=== PATIENT | male | born 1985 | race African-American/Black ===

== ENCOUNTER 2018-08-15 03:02 | Emergency (ER) | payer OTHER ==
[2018-08-15] MEDS ORDERED: LIDOCAINE 1%/EPINEPHRINE INJ 20 ML VIAL ONE (03:10)
[2018-08-15] MEDS ORDERED: CEFAZOLIN INJ 1 GM VIAL ONE (03:14)
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
== END 2018-08-15 05:47 | disposition home or self-care (01) ==
LOC: ER 03:02
PROC: 0HQ1XZZ Repair Face Skin, External Approach (ICD-10-PCS; principal; 2018-08-15)
PROC: 0HQJXZZ Repair Left Upper Leg Skin, External Approach (ICD-10-PCS; 2018-08-15)
PROC: 0HQ8XZZ Repair Buttock Skin, External Approach (ICD-10-PCS; 2018-08-15)
PROC: 0HQ5XZZ Repair Chest Skin, External Approach (ICD-10-PCS; 2018-08-15)
PROC: 0HQBXZZ Repair Right Upper Arm Skin, External Approach (ICD-10-PCS; 2018-08-15)
DX: S21.102A Unspecified open wound of left front wall of thorax without penetration into thoracic cavity, initial encounter (principal); S21.101A Unspecified open wound of right front wall of thorax without penetration into thoracic cavity, initial encounter; S71.002A Unspecified open wound, left hip, initial encounter; S31.829A Unspecified open wound of left buttock, initial encounter; S01.501A Unspecified open wound of lip, initial encounter; S01.80XA Unspecified open wound of other part of head, initial encounter; S01.102A Unspecified open wound of left eyelid and periocular area, initial encounter; S41.101A Unspecified open wound of right upper arm, initial encounter; X99.9XXA Assault by unspecified sharp object, initial encounter; I10 Essential (primary) hypertension
CPT/HCPCS: 99285; 71045; 74177; 13132; 13101; 13121 ×2; 13151; J0690; J3490

== ENCOUNTER 2019-10-31 13:50 | Emergency (ER) | payer OTHER ==
--- NOTE | 2019-10-31 16:30 | RADIOLOGY REPORT (SQ) ---
EXAM DESCRIPTION: CHEST SINGLE VIEW IMAGES COMPLETED DATE/TIME: 10/31/2019 4:14 pm REASON FOR STUDY: SOB COMPARISON: 08/15/2018 EXAM PARAMETERS: NUMBER OF VIEWS: One view. TECHNIQUE: Single frontal radiographic view of the chest acquired. RADIATION DOSE: NA LIMITATIONS: None. FINDINGS: LUNGS AND PLEURA: No opacities, masses or pneumothorax. No pleural effusion. MEDIASTINUM AND HILAR STRUCTURES: No masses. Contour normal. HEART AND VASCULAR STRUCTURES: Heart normal in size. Normal vasculature. BONES: No acute findings. HARDWARE: None in the chest. OTHER: No other significant finding. IMPRESSION: NO ACUTE RADIOGRAPHIC FINDING IN THE CHEST. TECHNICAL DOCUMENTATION: JOB ID: [id number] 2010 [employer]- All Rights Reserved Reading location - IP/workstation name: [email or web address]
[2019-10-31] MEDS ORDERED: ALBUTEROL SULFATE 0.083% NEB 2.5 MG/3 ML AMPUL NEB ONE (19:15)
[2019-10-31] MEDS ORDERED: PREDNISONE 20 MG TABLET PO ONE (19:15)
--- NOTE | 2019-10-31 20:34 | ER Document Report ---
ED General - General Chief Complaint: Shortness Of Breath Stated Complaint: SHORTNESS OF BREATH Time Seen by Provider: 10/31/19 18:02 Mode of Arrival: Ambulatory Information source: Patient TRAVEL OUTSIDE OF THE [place] IN LAST 30 DAYS: No - HPI Notes: Patient presents complaint of shortness of breath. He states it started about 3 AM today. He states that he woke up having trouble breathing. He states he does have inhalers at home but has not gotten relief by using them. He does have a history of asthma. He denies any steroids. He states that he quit smoking 1 week ago. No cough cold or congestion. No known covert virus exposures. No fever sweats or chills. Shortness of breath is constant. It is worse with exertion and better with rest. Obvious there is no radiation of the symptoms. It was moderate in intensity. - Related Data Allergies/Adverse Reactions: No Known Allergies Allergy (Verified 08/15/18 06:31) Past Medical History - General Information source: Patient - Social History Smoking Status: Current Every Day Smoker Frequency of alcohol use: None Drug Abuse: None Family History: Reviewed & Not Pertinent Patient has homicidal ideation: No - Past Medical History Cardiac Medical History: Reports: Hx Hypertension - waiting for pa to prescribe meds Denies: Hx Heart Attack Pulmonary Medical History: Denies: Hx Asthma, Hx Bronchitis, Hx COPD, Hx Pneumonia Neurological Medical History: Denies: Hx Seizures Musculoskeletal Medical History: Denies Hx Arthritis, Reports Hx Musculoskeletal Deformity, Reports Hx Musculoskeletal Trauma Past Surgical History: Reports: Hx Orthopedic Surgery - left ankle - Immunizations Immunizations up to date: Yes Hx Diphtheria, Pertussis, Tetanus Vaccination: Yes - 02/17/2016 Review of Systems - Review of Systems Constitutional: denies: Chills, Fever Cardiovascular: denies: Chest pain, Palpitations Respiratory: Cough, Short of breath -: Yes All other systems reviewed and negative Physical Exam - Vital signs Vitals: Temp Pulse Resp BP Pulse Ox 98.6 F 64 14 153/91 H 99 10/31/19 14:50 10/31/19 14:50 10/31/19 14:50 10/31/19 14:50 10/31/19 14:50 Interpretation: Hypertensive - General General appearance: Appears well, Alert - HEENT Head: Normocephalic, Atraumatic Eyes: Normal Pupils: PERRL - Respiratory Respiratory status: No respiratory distress Chest status: Nontender Breath sounds: Wheezing Chest palpation: Normal - Cardiovascular Rhythm: Regular Heart sounds: Normal auscultation Murmur: No - Abdominal Inspection: Normal Distension: No distension Bowel sounds: Normal Tenderness: Nontender Organomegaly: No organomegaly - Back Back: Normal, Nontender - Extremities General upper extremity: Normal inspection, Nontender, Normal color, Normal ROM, Normal temperature General lower extremity: Normal inspection, Nontender, Normal color, Normal ROM, Normal temperature, Normal weight bearing. No: Jevon's sign - Neurological Neuro grossly intact: Yes Cognition: Normal Orientation: AAOx4 [place] Coma Scale Eye Opening: Spontaneous [place] Coma Scale Verbal: Oriented [place] Coma Scale Motor: Obeys Commands [place] Coma Scale Total: 15 Speech: Normal Motor strength normal: LUE, RUE, LLE, RLE Sensory: Normal - Psychological Associated symptoms: Normal affect, Normal mood - Skin Skin Temperature: Warm Skin Moisture: Dry Skin Color: Normal Course - Re-evaluation Re-evalutation: 10/31/19 20:32 Patient treated here with steroids and nebulizers. Afterward she had significant relief of symptoms. He states subjectively that he feels "much better". His respirations are unlabored and he is sitting in the room watching TV. His wheezing is completely abated. His lungs are now clear. - Vital Signs Vital signs: Temp Pulse Resp BP Pulse Ox 98.6 F 64 14 153/91 H 99 10/31/19 15:54 10/31/19 14:50 10/31/19 14:50 10/31/19 14:50 10/31/19 14:50 - Diagnostic Test Radiology reviewed: Image reviewed, Reports reviewed Discharge - Discharge Clinical Impression: Acute asthma exacerbation Qualifiers: Asthma severity: moderate Asthma persistence: persistent Qualified Code(s): J45.41 - Moderate persistent asthma with (acute) exacerbation Condition: Stable Disposition: HOME, SELF-CARE Instructions: Asthma ([facility]) Additional Instructions: Please call your primary care doctor soon as possible to arrange follow-up Prescriptions: Prednisone [Deltasone 20 mg Tablet] 3 tab PO DAILY 5 Days tablet Referrals: [facility] [Provider Group] - Follow up in 3-5 days
[2019-10-31 20:39] VITALS: BP 151/98
== END 2019-10-31 20:49 | disposition home or self-care (01) ==
LOC: ER 13:50
DX: R06.02 Shortness of breath (principal); F17.200 Nicotine dependence, unspecified, uncomplicated; J45.41 Moderate persistent asthma with (acute) exacerbation; I10 Essential (primary) hypertension
CPT/HCPCS: 94640; 99284; 71045; J7512

== ENCOUNTER 2019-11-16 01:43 | Emergency (ER) | payer OTHER ==
[2019-11-16] MEDS ORDERED: IPRATROPIUM/ALBUTEROL 0.5-2.5 MG/3 ML AMPUL NEB ONE ×2 (01:50→01:54)
[2019-11-16] MEDS ORDERED: METHYLPREDNISOLONE INJ 125 MG/2 ML SDV IV ONE (01:54)
[2019-11-16] MEDS ORDERED: MAGNESIUM SULFATE/D5W 1 GM/100 ML RTUPB IV SCH (02:00)
--- NOTE | 2019-11-16 02:30 | RADIOLOGY REPORT (SQ) ---
EXAM DESCRIPTION: XR CHEST 1 VIEW COMPLETED DATE/TME: 11/16/2019 01:53 CLINICAL HISTORY: 34 years, Male, SOB COMPARISON: X-ray chest 10/31/2019 NUMBER OF VIEWS: TECHNIQUE: LIMITATIONS: None. FINDINGS: No evidence of pulmonary infiltrate or pleural effusion. The heart and mediastinum are unremarkable. Pulmonary vascularity appears normal. There is no significant change, as compared with the prior x-ray(s). IMPRESSION: No acute finding. copyright 2010 [employer]- All Rights Reserved
[2019-11-16 02:34] LABS: ABSOLUTE EOSINOPHILS # (AUTO) 0.4 10^3/uL (0.0-0.6); ABSOLUTE LYMPHOCYTES (AUTO) 2.9 10^3/uL (0.5-4.7); ABSOLUTE MONOCYTES (AUTO) 0.8 10^3/uL (0.1-1.4); ABSOLUTE NEUT (AUTO) 2.6 10^3/uL (1.7-8.2); BASOPHILS % (AUTO) 0.5 % (0-2); EOSINOPHILS % (AUTO) 5.6 % (0-6); HEMATOCRIT 43.8 % (37.9-51.0); HEMOGLOBIN 15.1 g/dL (13.5-17.0); LYMPHOCYTES % (AUTO) 43.1 % (13-45); MEAN CORPUSCULAR HEMOGLOBIN 31.7 pg (27.0-33.4); MEAN CORPUSCULAR HGB CONC 34.5 g/dL (32.0-36.0); MEAN CORPUSCULAR VOLUME 92 fl (80-97); MONOCYTES % (AUTO) 12.3 % (3-13); PLATELET COUNT 236 10^3/uL (150-450); RED BLOOD COUNT 4.77 10^6/uL (4.35-5.55); RED CELL DISTRIBUTION WIDTH 13.9 % (11.5-14.0); SEGMENTED NEUTROPHILS % (AUTO) 38.5 % (42-78); TOTAL CELLS COUNTED % (AUTO) 100 %; WHITE BLOOD COUNT 6.6 10^3/uL (4.0-10.5)
--- NOTE | 2019-11-16 02:41 | ER Document Report ---
ED Respiratory Problem - General Stated Complaint: SHORTNESS OF BREATH Time Seen by Provider: 11/16/19 01:53 Mode of Arrival: Ambulatory Information source: Patient Notes: Patient is a 34-year-old male with history of asthma presenting to the emergency department chief complaint of sudden onset shortness of breath and wheezing that began approximately 30 minutes prior to arrival. Patient reports he was driving around in a vehicle with his friend listening to music when he all of a sudden started experiencing symptoms. He states he does not have any inhalers for his asthma. He denies any other symptoms to include fever or chills. He has no known exposure to any COVID-19 positive persons. TRAVEL OUTSIDE OF THE [place] IN LAST 30 DAYS: No - Related Data Allergies/Adverse Reactions: No Known Allergies Allergy (Verified 11/16/19 02:20) Past Medical History - General Information source: Patient - Social History Smoking Status: Former Smoker Frequency of alcohol use: Occasional Family History: Reviewed & Not Pertinent - Past Medical History Cardiac Medical History: Reports: Hx Hypertension - waiting for me to prescribe meds, Hx Pulmonary Embolism - Pt reports he thinks he had a PE, not on blood thinners Denies: Hx Heart Attack Pulmonary Medical History: Denies: Hx Asthma, Hx Bronchitis, Hx COPD, Hx Pneumonia Neurological Medical History: Denies: Hx Seizures Musculoskeletal Medical History: Denies Hx Arthritis, Reports Hx Musculoskeletal Deformity, Reports Hx Musculoskeletal Trauma Past Surgical History: Reports: Hx Orthopedic Surgery - left ankle - Immunizations Immunizations up to date: Yes Hx Diphtheria, Pertussis, Tetanus Vaccination: Yes - 02/17/2016 Review of Systems - Review of Systems Respiratory: Short of breath, Wheezing -: Yes All other systems reviewed and negative Physical Exam - Vital signs Vitals: Resp Pulse Ox 20 100 11/16/19 02:08 11/16/19 02:08 - Notes Notes: PHYSICAL EXAMINATION: GENERAL: Well-nourished and in moderate respiratory distress. HEAD: Atraumatic, normocephalic. EYES: Pupils equal round and reactive to light, extraocular movements intact, sclera anicteric, conjunctiva are normal. ENT: Nares patent, oropharynx clear without exudates. Moist mucous membranes. NECK: Normal range of motion, supple without lymphadenopathy LUNGS: Inspiratory and expiratory wheezes throughout, increased work of breathin g. Speaking in full sentences. HEART: Regular rate and rhythm without murmurs ABDOMEN: Soft, nontender, nondistended abdomen. No guarding, no rebound. No masses appreciated. Musculoskeletal: Normal range of motion, no pitting or edema. No cyanosis. NEUROLOGICAL: Cranial nerves grossly intact. Normal speech, normal gait. Normal sensory, motor exams PSYCH: Normal mood, normal affect. SKIN: Warm, Dry, normal turgor, no rashes or lesions noted. Course - Re-evaluation Re-evalutation: Patient presenting with acute asthma exacerbation. He has never been intubated for his asthma. He will be given DuoNeb treatments x3, 125 mg Solu-Medrol IV, 2 g of magnesium sulfate IV. He did reply yes when I asked if he had a history of pulmonary embolism so he was sent for a CTA. He does not have any acute findings on this scan. Multiple re-evaluations were done on this patient. Medications working well. Patient reports in between each breathing treatment that his symptoms are significantly improving. Patient has maintained oxygen saturations above 97% during his entire ED stay. His work of breathing is definitely improving. Chest x-ray and CTA of the chest are both negative. Labs unremarkable. He has had complete resolution of his symptoms after administration of medications. He will be sent home with an inhaler. He will also be started on a 5-day course of prednisone. ED return precautions discussed. - Vital Signs Vital signs: Temp Pulse Resp BP Pulse Ox 98.2 F 82 18 138/80 H 96 11/16/19 06:16 11/16/19 06:16 11/16/19 06:16 11/16/19 06:16 11/16/19 06:16 - Laboratory Result Diagrams: 11/16/19 02:20 11/16/19 02:20 Laboratory results interpreted by me: 11/16/19 02:20 Seg Neutrophils % 38.5 L - Diagnostic Test Radiology reviewed: Image reviewed, Reports reviewed - EKG Interpretation by Ct EKG shows normal: Sinus rhythm Rate: Tachycardia Rhythm: NSR - No st segment elevations or depressions, normal axis Critical Care Note - Critical Care Note Total time excluding time spent on procedures (mins): 35 Comments: Multiple re-evaluations for patient with acute asthma exacerbation. Discharge - Discharge Clinical Impression: Asthma exacerbation Qualifiers: Asthma severity: severe Asthma persistence: unspecified Qualified Code(s): J45.901 - Unspecified asthma with (acute) exacerbation Condition: Stable Disposition: HOME, SELF-CARE Additional Instructions: You were seen for an asthma exacerbation. Your symptoms improved with treatment here in the emergency department. However, it is very important that you return to the emergency department immediately if you began to have worsening difficulty breathing that does not respond to your normal home nebulizers. You are also being sent home on a five-day course of steroids that you should start taking tomorrow. Please also follow closely with your primary care physician. you should also return to emergency department if you develop fever greater than 101, persistent cough, persistent vomiting, pass out, or any other symptoms that are concerning to you. Prescriptions: Prednisone [Deltasone 20 mg Tablet] 3 tab PO DAILY 4 Days #12 tablet Albuterol Sulfate [Proair HFA Inhalation Aerosol 8.5 gm MDI] 2 puff IH Q4H PRN #1 mdi PRN Reason: Forms: Return to Work
[2019-11-16 02:52] LABS: ALBUMIN 4.1 g/dL (3.5-5.0); ALKALINE PHOSPHATASE 56 U/L (38-126); ANION GAP 7 (5-19); ASPARTATE AMINO TRANSFERASE 46 U/L (17-59); BILIRUBIN,TOTAL 0.5 mg/dL (0.2-1.3); BLOOD UREA NITROGEN 15 mg/dL (7-20); CALCIUM 9.3 mg/dL (8.4-10.2); CARBON DIOXIDE 26 mmol/L (22-30); CHLORIDE 104 mmol/L (98-107); GLUCOSE 93 mg/dL (75-110); POTASSIUM 4.2 mmol/L (3.6-5.0); TOTAL PROTEIN 6.9 g/dL (6.3-8.2)
[2019-11-16] MEDS: MAGNESIUM SULFATE/D5W 1 GM/100 ML RTUPB IV SCH ×2 (03:04→04:05)
--- NOTE | 2019-11-16 03:10 | RADIOLOGY REPORT (SQ) ---
CT angiogram chest with contrast on 11/16/2019 2:35 AM CLINICAL INDICATION: Shortness of breath, wheezing, history of pulmonary embolus TECHNIQUE: Multiple axial images are obtained throughout the chest following the administration of IV contrast. Computer generated 3D reconstructions/MIPS were performed. This exam was performed according to our departmental dose-optimization program, which includes automated exposure control, adjustment of the mA and/or kV according to patient size and/or use of iterative reconstruction technique. Total DLP is 459.75 mGy*cm. COMPARISON: 02/17/2016 FINDINGS: There is no thoracic aortic aneurysm or dissection. The lung bases are incompletely imaged. There is no pleural or pericardial effusion. There is no thoracic adenopathy. There are no filling defects within the pulmonary arteries to suggest pulmonary embolus. There is evidence of calcified granulomatous disease in the chest. The visualized lungs are otherwise clear. No bony abnormality is noted. IMPRESSION: 1. No evidence of pulmonary embolus. 2. No acute abnormality.
[2019-11-16 03:20] LABS: INTERNATIONAL RATION (INR) 1.06; PROTHROMBIN TIME 13.9 SEC (11.4-15.4)
[2019-11-16 03:21] LABS: PARTIAL THROMBOPLASTIN TIME 30.7 SEC (23.5-35.8)
[2019-11-16] MEDS ORDERED: ALBUTEROL SULFATE HFA (90 MCG/PUFF) 8 GM MDI (1 MDI/ER DISP) IH ONE ×2 (05:48→06:10)
[2019-11-16] MEDS ORDERED: PREDNISONE 20 MG TABLET PO ONE (05:48)
[2019-11-16] MEDS ORDERED: ALBUTEROL SULFATE HFA (90 MCG/PUFF) 8 GM MDI IH ONE (06:11)
[2019-11-16 06:37] VITALS: BP 138/80
--- NOTE | 2019-11-16 13:12 | EKG REPORT ---
SEVERITY:- ABNORMAL ECG - SINUS RHYTHM PROBABLE LEFT VENTRICULAR HYPERTROPHY ST ELEV, PROBABLE NORMAL EARLY REPOL PATTERN : Confirmed by: Shadi Helm MD 16-Nov-2019 13:12:28
== END 2019-11-16 06:16 | disposition home or self-care (01) ==
LOC: ER 01:43
DX: J45.901 Unspecified asthma with (acute) exacerbation (principal); R06.02 Shortness of breath; R00.0 Tachycardia, unspecified; I10 Essential (primary) hypertension; Z87.891 Personal history of nicotine dependence
CPT/HCPCS: 93005; 94640; 99285; 96375; 96365; 36415; 85025; 85610; 85730; 80053; 71045; 71275; 93010; J2930; J3475; J7512; J3490